=== PATIENT | female | born 1950 | race Caucasian/White ===

== ENCOUNTER 2019-04-28 08:39 | Day surgery (SDC) | payer MEDICARE ==
[2019-04-27 15:32] LABS: BASOPHILS # (AUTO) 0.1 X10'3 (0-0.2); BASOPHILS % (AUTO) 1.8 % (0-1); EOSINOPHILS # (AUTO) 0.2 X10'3 (0-0.9); EOSINOPHILS % (AUTO) 3.1 % (0-6); HEMATOCRIT 38.5 % (35.0-45.0); HEMOGLOBIN 12.8 g/dl (12.0-16.0); LYMPHOCYTES # (AUTO) 2.3 X10'3 (1.1-4.8); LYMPHOCYTES % (AUTO) 36.8 % (21-51); MEAN CORPUSCULAR HEMOGLOBIN 28.2 PG (27.0-31.0); MEAN CORPUSCULAR HGB CONC 33.4 g/dL (33.0-36.5); MEAN CORPUSCULAR VOLUME 84.6 FL (78-98); MONOCYTES # (AUTO) 0.7 X10'3 (0-0.9); MONOCYTES % (AUTO) 10.5 % (2-12); NEUTROPHILS # (AUTO) 2.9 X10'3 (1.8-7.7); NEUTROPHILS % (AUTO) 47.8 % (42-75); PLATELET COUNT 256 X10'3 (140-440); RED BLOOD COUNT 4.55 X10'6 (4.20-5.60); RED CELL DISTRIBUTION WIDTH 15.2 % (11.5-14.5); WHITE BLOOD COUNT 6.2 X10'3 (4.5-11.0)
[2019-04-27 15:43] LABS: PARTIAL THROMBOPLASTIN TIME 26 SECONDS (22-32)
[2019-04-27 16:01] LABS: ALBUMIN 3.9 G/DL (3.4-5.0); ANION GAP 11 (8-16); BLOOD UREA NITROGEN 23 MG/DL (7-18); BUN/CREATININE RATIO 24.5 (6.6-38.0); CALCIUM 8.8 MG/DL (8.5-10.1); CHLORIDE 106 MMOL/L (99-107); CREATININE 0.94 MG/DL (0.40-0.90); GLUCOSE 101 MG/DL (70-104); SODIUM 143 MMOL/L (135-145); TOTAL CARBON DIOXIDE 26.1 MMOL/L (24-32); eGFR 59 ML/MIN
[2019-04-28] VITALS (15 sets, daily range): BP systolic 122–165; BP diastolic 48–85
[~2019-04-28] VITALS: Ht 185.4 cm; Wt 66.9 kg
[2019-04-28] MEDS ORDERED: normal saline 1,000 ML IV SCH (09:00)
[2019-04-28] MEDS ORDERED: LORazepam 0.5 MG tablet PO PRN (09:00)
[2019-04-28] MEDS ORDERED: diphenhydrAMINE 25mg capsule PO PRN (09:00)
[2019-04-28] MEDS ORDERED: ATOR20TA PO (09:14)
[2019-04-28] MEDS ORDERED: TRAZ-251 PO (09:14)
[2019-04-28] MEDS ORDERED: DICL75TA5 PO (09:14)
[2019-04-28] MEDS ORDERED: BISO5TAB PO (09:14)
[2019-04-28] MEDS ORDERED: TOP100T PO (09:14)
[2019-04-28] MEDS ORDERED: VENL-190 PO (09:14)
[2019-04-28] MEDS ORDERED: AMLO5TAB PO (09:14)
[2019-04-28 09:40] LABS: ALBUMIN 3.9 G/DL (3.4-5.0); ANION GAP 12 (8-16); BLOOD UREA NITROGEN 20 MG/DL (7-18); BUN/CREATININE RATIO 24.4 (6.6-38.0); CALCIUM 8.9 MG/DL (8.5-10.1); CHLORIDE 108 MMOL/L (99-107); CREATININE 0.82 MG/DL (0.40-0.90); GLUCOSE 97 MG/DL (70-104); SODIUM 145 MMOL/L (135-145); TOTAL CARBON DIOXIDE 24.8 MMOL/L (24-32); eGFR 69 ML/MIN
[2019-04-28] MEDS ORDERED: nitroGLYCERIN-Tridil 50MG/D5W 250 ML IV ONE (09:50)
[2019-04-28] MEDS ORDERED: midazolam 2 mg/2 ml injection ONE (09:50)
[2019-04-28] MEDS ORDERED: fentaNYL/PF 50MCG/1 ML 2ML syringe ONE (09:50)
[2019-04-28] MEDS ORDERED: iohexol 350MG/ML 100ml bottle IV ONE (09:51)
[2019-04-28] MEDS ORDERED: heparin 1,000unit/ml 10ml vial 10 ML ONE (09:51)
[2019-04-28] MEDS ORDERED: LIDOcaine 1% 30ml preserv. free vial ONE (09:51)
[2019-04-28] MEDS ORDERED: iohexol 350 MG/ML 50ML vial IV ONE (09:51)
[2019-04-28] MEDS ORDERED: verapamil 2.5 mg/ml inj IV ONE (10:11)
[2019-04-28 14:01] LABS: ISTAT HGB ART 12.2 g/dl (12.0-16.0); ISTAT Hct ART 36 %PCV (35-48); ISTAT O2 SATURATION ARTERIAL 98 % (95-98); ISTAT SOURCE ART
[2019-04-28 14:01] LABS: ISTAT Hct MIX 35 %PCV (35-48); ISTAT O2 SATURATION MIX VENOUS 76 % (60-80); ISTAT SOURCE MIX
== END 2019-04-28 18:00 | disposition home or self-care (01) ==
LOC: SSTAY O 08:39
PROVIDERS: ATTEND Internal Medicine Cardiovascular Disease
DX: R94.39 Abnormal result of other cardiovascular function study (principal); I25.10 Atherosclerotic heart disease of native coronary artery without angina pectoris; I11.0 Hypertensive heart disease with heart failure; I50.9 Heart failure, unspecified; E78.5 Hyperlipidemia, unspecified; E03.9 Hypothyroidism, unspecified; I42.0 Dilated cardiomyopathy; Z79.899 Other long term (current) drug therapy
CPT/HCPCS: 36415; 80048; 82803; 85014; 85025; 85610; 85730; 93005; 93460; 93567; 99152; 99153; C1769; C1894; J1644; J2001; J2250; J3010; J7030; Q0163; Q9967; 93458; A4620; A6258; J3490